=== PATIENT | male | born 2000 | race Caucasian/White ===

== ENCOUNTER 2020-06-15 09:40 | Emergency (ER) | payer OTHER, SELFPAY ==
[~2020-06-15] VITALS: Ht 175.3 cm; Wt 60.9 kg
[2020-06-15 09:57] VITALS: BP 127/78
[2020-06-15] MEDS ORDERED: IBUP-1984 PO (10:29)
== END 2020-06-15 10:48 | disposition home or self-care (01) ==
LOC: ER 09:42
DX: R10.31 Right lower quadrant pain (principal); R10.30 Lower abdominal pain, unspecified
CPT/HCPCS: 99282

== ENCOUNTER 2020-10-26 17:54 | Emergency (ER) | payer OTHER, SELFPAY ==
[~2020-10-26] VITALS: Ht 175.3 cm; Wt 60.8 kg
[2020-10-26 18:02] VITALS: BP 122/85
[2020-10-26] MEDS ORDERED: proparacaine 0.5% ophthalmic drops 15ml LEFTEYE ONE (18:45)
[2020-10-26] MEDS ORDERED: TETanus/Pertussis (Acell)/Diphther VAC/PF (Tdap-Adult) 0.5ml syringe IMVAC ONE (18:45)
[2020-10-26] MEDS ORDERED: ERYT1OIN6 LEFTEYE (19:16)
== END 2020-10-26 19:51 | disposition home or self-care (01) ==
LOC: ER 17:55
DX: T15.12XA Foreign body in conjunctival sac, left eye, initial encounter (principal); Z79.2 Long term (current) use of antibiotics; X58.XXXA Exposure to other specified factors, initial encounter; Y93.89 Activity, other specified; Y92.89 Other specified places as the place of occurrence of the external cause; Y99.8 Other external cause status
CPT/HCPCS: 90471; 90715; 99284

== ENCOUNTER 2021-03-22 11:19 | Emergency (ER) | payer OTHER ==
[~2021-03-22] VITALS: Ht 175.3 cm; Wt 65.9 kg
[2021-03-22 12:05] VITALS: BP 138/51
[2021-03-22] MEDS ORDERED: IBUP-1984 PO (13:12)
== END 2021-03-22 13:25 | disposition home or self-care (01) ==
LOC: ER 11:19
DX: S90.31XA Contusion of right foot, initial encounter (principal); M79.671 Pain in right foot; Z79.899 Other long term (current) drug therapy; X58.XXXA Exposure to other specified factors, initial encounter; Y93.89 Activity, other specified; Y92.89 Other specified places as the place of occurrence of the external cause; Y99.8 Other external cause status
CPT/HCPCS: 73630; 99283